=== PATIENT | female | born 1945 | race Caucasian/White ===

== ENCOUNTER 2016-05-03 15:15 | Outpatient (CLI) | payer MEDICARE, OTHER | END 2016-05-03 15:16 | disposition home or self-care (01) | DX: E78.00 Pure hypercholesterolemia, unspecified (principal); J45.901 Unspecified asthma with (acute) exacerbation; E03.9 Hypothyroidism, unspecified ==

== ENCOUNTER 2016-10-19 08:00 | Outpatient (CLI) | payer MEDICARE, OTHER ==
[2016-10-19 20:16] LABS: BASOPHILS % (AUTO) 0.6 %; EOSINOPHILS # (AUTO) 0.2 10^3/uL (0.0-0.7); EOSINOPHILS % (AUTO) 2.9 %; HCT - HEMATOCRIT 40.7 % (37.0-47.0); HGB - HEMOGLOBIN 13.6 g/dL (12.0-16.0); LYMPHOCYTES # (AUTO) 1.7 10^3/uL (1.5-3.5); LYMPHOCYTES % (AUTO) 25.5 %; MEAN CORPUSCULAR HEMOGLOBIN 29.6 pg (27.0-31.0); MEAN CORPUSCULAR HGB CONC 33.4 g/dL (32.0-36.0); MEAN CORPUSCULAR VOLUME 88.5 fL (81.0-99.0); MEAN PLATELET VOLUME 8.8 fL (7.9-10.8); MONOCYTES # (AUTO) 0.6 10^3/uL (0.0-1.0); MONOCYTES % (AUTO) 9.5 %; NEUTROPHILS % (AUTO) 61.5 %; RED BLOOD COUNT 4.59 10^6/uL (4.20-5.40); RED CELL DISTRIBUTION WIDTH 14.2 % (12.0-15.0); UNCORRECTED WHITE BLOOD COUNT 6.5 x10^3/uL; WHITE BLOOD COUNT 6.5 x10^3/uL (4.8-10.8)
[2016-10-19 20:27] LABS: ALBUMIN/GLOBULIN RATIO 1.3 (1.0-2.2); BILIRUBIN,TOTAL 0.6 mg/dL (0.2-1.0); BUN - BLOOD UREA NITROGEN 15 mg/dL (6-20); CALCIUM 9.3 mg/dL (8.5-10.3); CARBON DIOXIDE - CO2 29 mmol/L (21-32); CHLORIDE 100 mmol/L (101-111); CREATININE 0.6 mg/dL (0.4-1.0); GFR - MDRD 99 (>89); GLUCOSE 84 mg/dL (70-100); SODIUM 136 mmol/L (135-145); TOTAL PROTEIN 7.3 g/dL (6.7-8.2)
== END 2016-10-19 08:01 | disposition home or self-care (01) ==
LOC: LAB.WCP 08:00
PROVIDERS: ATTEND Internal Medicine Rheumatology
DX: M05.79 Rheumatoid arthritis with rheumatoid factor of multiple sites without organ or systems involvement (principal)
CPT/HCPCS: 36415; 80053; 82550; 84443; 85025; 85651; 86140

== ENCOUNTER 2017-02-03 11:13 | Outpatient (CLI) | payer MEDICARE, OTHER | END 2017-02-03 11:14 | disposition home or self-care (01) | LOC: LAB.F 11:13 | PROVIDERS: ATTEND Internal Medicine | DX: M81.0 Age-related osteoporosis without current pathological fracture (principal) | CPT/HCPCS: 36415; 83970 ==

== ENCOUNTER 2017-03-16 14:47 | Outpatient (CLI) | payer MEDICARE, OTHER ==
[2017-03-16 18:09] LABS: THYROID STIMULATING HORMONE 1.18 uIU/mL (0.34-5.60)
== END 2017-03-16 14:48 | disposition home or self-care (01) ==
LOC: LAB.F 14:47
PROVIDERS: ATTEND Family Medicine
DX: E03.9 Hypothyroidism, unspecified (principal)
CPT/HCPCS: 36415; 84432; 84439; 84443; 84481; 86800

== ENCOUNTER 2017-06-08 12:36 | Outpatient (CLI) | payer MEDICARE, OTHER ==
[2017-06-08 18:13] LABS: THYROID STIMULATING HORMONE 0.61 uIU/mL (0.34-5.60)
[2017-06-08 18:15] LABS: FREE T4 (FREE THYROXINE) 0.71 ng/dL (0.58-1.64)
[2017-06-12 11:31] LABS: THYROID PEROXIDASE ANTIBODIES 3 IU/mL (<9)
== END 2017-06-08 12:37 | disposition home or self-care (01) ==
LOC: LAB.F 12:36
PROVIDERS: ATTEND Family Medicine
DX: E03.9 Hypothyroidism, unspecified (principal)
CPT/HCPCS: 36415; 84439; 84443; 84481; 86376; 86800

== ENCOUNTER 2017-08-16 15:05 | Outpatient (CLI) | payer MEDICARE, OTHER ==
[2017-08-16 17:42] LABS: BASOPHILS # (AUTO) 0.1 10^3/uL (0.0-0.1); EOSINOPHILS # (AUTO) 0.2 10^3/uL (0.0-0.7); EOSINOPHILS % (AUTO) 2.6 %; HGB - HEMOGLOBIN 13.1 g/dL (12.0-16.0); LYMPHOCYTES # (AUTO) 2.3 10^3/uL (1.5-3.5); LYMPHOCYTES % (AUTO) 24.3 %; MEAN CORPUSCULAR HEMOGLOBIN 29.3 pg (27.0-31.0); MEAN CORPUSCULAR HGB CONC 33.3 g/dL (32.0-36.0); MEAN CORPUSCULAR VOLUME 87.9 fL (81.0-99.0); MEAN PLATELET VOLUME 8.3 fL (7.9-10.8); MONOCYTES # (AUTO) 0.8 10^3/uL (0.0-1.0); MONOCYTES % (AUTO) 8.5 %; NEUTROPHILS % (AUTO) 63.6 %; PLT - PLATELET COUNT 222 10^3/uL (130-450); RED BLOOD COUNT 4.49 10^6/uL (4.20-5.40); RED CELL DISTRIBUTION WIDTH 13.7 % (12.0-15.0); WHITE BLOOD COUNT 9.3 x10^3/uL (4.8-10.8)
[2017-08-16 18:08] LABS: ALBUMIN 4.1 g/dL (3.2-5.5); ALBUMIN/GLOBULIN RATIO 1.4 (1.0-2.2); BILIRUBIN,TOTAL 0.7 mg/dL (0.2-1.0); CALCIUM 8.9 mg/dL (8.5-10.3); TOTAL PROTEIN 7.1 g/dL (6.7-8.2)
== END 2017-08-16 15:06 | disposition home or self-care (01) ==
LOC: LAB.F 15:05
PROVIDERS: ATTEND Family Medicine
DX: M05.79 Rheumatoid arthritis with rheumatoid factor of multiple sites without organ or systems involvement (principal)
CPT/HCPCS: 36415; 80053; 85025; 85651

== ENCOUNTER 2017-11-08 10:45 | Outpatient (CLI) | payer MEDICARE, OTHER ==
--- NOTE | 2017-11-08 14:05 | DEXA Report ---
Procedure Date: 11/08/2017 Accession Number: [id number] / [id number] Procedure: DEX - Dexa Spine and/or Hip CPT Code: FULL RESULT: EXAM: Dexa Spine and/or Hip DATE: 11/08/2017 11:20 AM CLINICAL HISTORY: POSTMENOPAUSAL TECHNIQUE: Dual energy x-ray absorptiometry (DXA) was performed on a [employer] System. Regions measured are the AP Spine, femoral neck, and if needed forearm. COMPARISON: 10/19/2015. In accordance with the International Society for Clinical Densitometry (ISCD) guidelines, data from previous exams may be reanalyzed using current recommendations and techniques. This is done to allow a more accurate basis for comparison with the current study. FINDINGS: The data for the lumbar spine is as follows: BMD (g/cm/cm) T-SCORE Z-SCORE REGION L1 0.669 -3.8 -1.9 L2 0.726 -4.0 -2.0 L3 0.824 -3.1 -1.2 L4 0.950 -2.1 -0.2 TOTAL 0.803 -3.1 -1.2 NOTE: All evaluable vertebrae are used for classification The data for the hip is as follows: BMD (g/cm/cm) T-SCORE Z-SCORE REGION Neck 0.818 -1.6 0.3 TOTAL 0.780 -1.8 -0.1 NOTE: The femoral neck or total proximal femur, whichever is lowest, is used for classification. DXA RESULTS SUMMARY: Spine SCAN DATE AGE BMD CHANGE VS CHANGE VS PREVIOUS PREVIOUS % 11/08/2017 [age] 0.803 0.018 2.3 10/19/2015 [age] 0.785 * Denotes significant change at the 95% confidence level. Denotes dissimilar scan types or analysis methods. DXA RESULTS SUMMARY: Hip SCAN DATE AGE BMD CHANGE VS CHANGE VS PREVIOUS PREVIOUS % 11/08/2017 72.3 0.780 -0.010 -1.3 10/19/2015 [age] 0.790 * Denotes significant change at the 95% confidence level. Denotes dissimilar scan types or analysis methods. IMPRESSION: THE WHO CLASSIFICATION BASED ON THE INTERNATIONAL REFERENCE STANDARD IS OSTEOPOROSIS. THE FRACTURE RISK IS HIGH. RECOMMENDATION: Patients with diagnosis of osteoporosis or osteopenia should have regular bone mineral density assessment. For those eligible for Medicare, routine testing is allowed once every 2 years. Testing frequency can be increased for patients who have rapidly progressing disease or for those who are receiving medical therapy to restore bone mass. COMMENT: World Health Organization (WHO) definitions for osteoporosis and osteopenia: NORMAL BMD: T-score at -1.0 or higher, fracture risk is low OSTEOPENIA BMD: T-score between -1.0 and -2.5, fracture risk is increased. OSTEOPOROSIS BMD: T-score at -2.5 or lower, fracture risk is high. National Osteoporosis Foundation recommends: 1. Obtain adequate dietary calcium (at least 1200 mg per day) and vitamin D (400-800 international units per day). 2. Participate, as appropriate, in regular weightbearing and muscle-strengthening exercise. 3. Avoid tobacco use and reduce alcohol and caffeine intake. 4. For more detailed information see the website at www.NOF.org.
== END 2017-11-08 10:46 | disposition home or self-care (01) ==
LOC: DI 10:45
PROVIDERS: ATTEND Physician Assistant Medical
DX: M81.0 Age-related osteoporosis without current pathological fracture (principal)
CPT/HCPCS: 77080

== ENCOUNTER 2017-11-23 09:14 | Outpatient (CLI) | payer MEDICARE, OTHER ==
[2017-11-23 17:34] LABS: CHOL/HDL RATIO 2.6 (<4.4); CHOLESTEROL 180 mg/dL; HDL CHOLESTEROL 68 mg/dL; LDL CHOLESTEROL,CALCULATED 99 mg/dL; LDL/HDL RATIO 1.5 (<4.4); VLDL CHOLESTEROL 13 mg/dL
[2017-11-23 17:44] LABS: THYROID STIMULATING HORMONE 3.71 uIU/mL (0.34-5.60)
[2017-11-23 17:46] LABS: FREE T4 (FREE THYROXINE) 0.66 ng/dL (0.58-1.64)
== END 2017-11-23 09:15 | disposition home or self-care (01) ==
LOC: LAB.F 09:14
PROVIDERS: ATTEND Family Medicine
DX: I10 Essential (primary) hypertension (principal); E78.00 Pure hypercholesterolemia, unspecified; M81.0 Age-related osteoporosis without current pathological fracture; E03.9 Hypothyroidism, unspecified
CPT/HCPCS: 36415; 80061; 82306; 83721; 84439; 84443; 84481

== ENCOUNTER 2018-01-10 13:42 | Outpatient (CLI) | payer MEDICARE, OTHER ==
[2018-01-10 18:52] LABS: BASOPHILS # (AUTO) 0.1 10^3/uL (0.0-0.1); BASOPHILS % (AUTO) 1.1 %; EOSINOPHILS # (AUTO) 0.2 10^3/uL (0.0-0.7); HGB - HEMOGLOBIN 13.8 g/dL (12.0-16.0); LYMPHOCYTES # (AUTO) 1.8 10^3/uL (1.5-3.5); LYMPHOCYTES % (AUTO) 22.3 %; MEAN CORPUSCULAR HEMOGLOBIN 29.9 pg (27.0-31.0); MEAN CORPUSCULAR HGB CONC 33.8 g/dL (32.0-36.0); MEAN CORPUSCULAR VOLUME 88.6 fL (81.0-99.0); MEAN PLATELET VOLUME 8.8 fL (7.9-10.8); MONOCYTES # (AUTO) 0.8 10^3/uL (0.0-1.0); MONOCYTES % (AUTO) 9.7 %; NEUTROPHILS # (AUTO) 5.2 10^3/uL (1.5-6.6); NEUTROPHILS % (AUTO) 64.9 %; PLT - PLATELET COUNT 224 10^3/uL (130-450); RED CELL DISTRIBUTION WIDTH 13.7 % (12.0-15.0)
[2018-01-10 19:11] LABS: ALBUMIN 4.4 g/dL (3.2-5.5); ALBUMIN/GLOBULIN RATIO 1.5 (1.0-2.2); BILIRUBIN,TOTAL 0.7 mg/dL (0.2-1.0); CALCIUM 9.6 mg/dL (8.5-10.3); CREATININE 0.4 mg/dL (0.4-1.0); TOTAL PROTEIN 7.3 g/dL (6.7-8.2)
== END 2018-01-10 13:43 | disposition home or self-care (01) ==
LOC: LAB.WCP 13:42
PROVIDERS: ATTEND Internal Medicine Rheumatology
DX: M05.79 Rheumatoid arthritis with rheumatoid factor of multiple sites without organ or systems involvement (principal)
CPT/HCPCS: 36415; 80053; 85025; 85651

== ENCOUNTER 2018-06-20 10:34 | Outpatient (CLI) | payer MEDICARE, OTHER | END 2018-06-20 10:35 | disposition home or self-care (01) | LOC: LAB.F 10:34 | PROVIDERS: ATTEND Internal Medicine | DX: E03.9 Hypothyroidism, unspecified (principal) | CPT/HCPCS: 36415; 80048; 84443 ==

== ENCOUNTER 2018-06-28 11:04 | Outpatient (CLI) | payer MEDICARE, OTHER ==
[2018-06-28 17:50] LABS: CALCIUM 9.3 mg/dL (8.5-10.3); CREATININE 0.6 mg/dL (0.4-1.0)
[2018-06-28 18:08] LABS: THYROID STIMULATING HORMONE 3.02 uIU/mL (0.34-5.60)
[2018-06-28 18:10] LABS: FREE T4 (FREE THYROXINE) 0.66 ng/dL (0.58-1.64)
== END 2018-06-28 11:05 | disposition home or self-care (01) ==
LOC: LAB.F 11:04
PROVIDERS: ATTEND Internal Medicine
DX: E03.9 Hypothyroidism, unspecified (principal)
CPT/HCPCS: 36415; 80048; 84439; 84443; 84481

== ENCOUNTER 2019-01-18 15:10 | Outpatient (CLI) | payer MEDICARE, OTHER ==
[2019-01-18 18:25] LABS: T4 (THYROXINE) 4.52 ug/dL (6.09-12.23)
[2019-01-18 18:31] LABS: THYROID STIMULATING HORMONE 2.37 uIU/mL (0.34-5.60)
[2019-01-18 18:32] LABS: FREE T4 (FREE THYROXINE) 0.71 ng/dL (0.58-1.64)
== END 2019-01-18 15:11 | disposition home or self-care (01) ==
LOC: LAB.S 15:10
PROVIDERS: ATTEND Internal Medicine
DX: E03.9 Hypothyroidism, unspecified (principal)
CPT/HCPCS: 36415; 84436; 84439; 84443; 84481

== ENCOUNTER 2019-01-23 13:40 | Outpatient (CLI) | payer MEDICARE, OTHER ==
[2019-01-23 19:08] LABS: BASOPHILS # (AUTO) 0.1 10^3/uL (0.0-0.1); BASOPHILS % (AUTO) 0.8 %; EOSINOPHILS # (AUTO) 0.3 10^3/uL (0.0-0.7); EOSINOPHILS % (AUTO) 3.3 %; HGB - HEMOGLOBIN 13.2 g/dL (12.0-16.0); LYMPHOCYTES # (AUTO) 1.8 10^3/uL (1.5-3.5); LYMPHOCYTES % (AUTO) 22.3 %; MEAN CORPUSCULAR HGB CONC 31.4 g/dL (32.0-36.0); MEAN CORPUSCULAR VOLUME 89.4 fL (81.0-99.0); MEAN PLATELET VOLUME 10.8 fL (7.9-10.8); MONOCYTES # (AUTO) 0.8 10^3/uL (0.0-1.0); MONOCYTES % (AUTO) 10.1 %; NEUTROPHILS % (AUTO) 63.2 %; PLT - PLATELET COUNT 259 10^3/uL (130-450); RED BLOOD COUNT 4.71 10^6/uL (4.20-5.40); RED CELL DISTRIBUTION WIDTH 14.4 % (12.0-15.0); WHITE BLOOD COUNT 7.9 x10^3/uL (4.8-10.8)
[2019-01-23 19:38] LABS: ALBUMIN 4.4 g/dL (3.2-5.5); ALBUMIN/GLOBULIN RATIO 1.4 (1.0-2.2); BILIRUBIN,TOTAL 0.6 mg/dL (0.2-1.0); CALCIUM 9.6 mg/dL (8.5-10.3); CREATININE 0.6 mg/dL (0.4-1.0); TOTAL PROTEIN 7.5 g/dL (6.7-8.2)
== END 2019-01-23 23:59 | disposition home or self-care (01) ==
LOC: LAB.WCP 13:40
PROVIDERS: ATTEND Internal Medicine Rheumatology
DX: M05.79 Rheumatoid arthritis with rheumatoid factor of multiple sites without organ or systems involvement (principal)
CPT/HCPCS: 36415; 80053; 85025; 85651

== ENCOUNTER 2019-10-08 11:09 | Outpatient (CLI) | payer MEDICARE, OTHER ==
[2019-10-08 15:20] LABS: BASOPHILS # (AUTO) 0.1 10^3/uL (0.0-0.1); BASOPHILS % (AUTO) 0.9 %; EOSINOPHILS # (AUTO) 0.2 10^3/uL (0.0-0.7); EOSINOPHILS % (AUTO) 3.5 %; HGB - HEMOGLOBIN 13.6 g/dL (12.0-16.0); LYMPHOCYTES # (AUTO) 1.8 10^3/uL (1.5-3.5); LYMPHOCYTES % (AUTO) 27.5 %; MEAN CORPUSCULAR HEMOGLOBIN 28.4 pg (27.0-31.0); MEAN CORPUSCULAR HGB CONC 31.9 g/dL (32.0-36.0); MEAN CORPUSCULAR VOLUME 88.9 fL (81.0-99.0); MEAN PLATELET VOLUME 10.5 fL (7.9-10.8); MONOCYTES # (AUTO) 0.7 10^3/uL (0.0-1.0); MONOCYTES % (AUTO) 10.5 %; NEUTROPHILS # (AUTO) 3.7 10^3/uL (1.5-6.6); NEUTROPHILS % (AUTO) 57.1 %; PLT - PLATELET COUNT 259 10^3/uL (130-450); RED BLOOD COUNT 4.79 10^6/uL (4.20-5.40); RED CELL DISTRIBUTION WIDTH 13.6 % (12.0-15.0); WHITE BLOOD COUNT 6.6 x10^3/uL (4.8-10.8)
[2019-10-08 15:51] LABS: ALBUMIN 4.5 g/dL (3.2-5.5); ALBUMIN/GLOBULIN RATIO 1.5 (1.0-2.2); ALKALINE PHOSPHATASE 65 IU/L (42-121); ALT ALANINE AMINOTRANSFERASE 20 IU/L (10-60); AST ASPARTATE AMINOTRANSFERASE 24 IU/L (10-42); BILIRUBIN,TOTAL 0.8 mg/dL (0.2-1.0); BUN - BLOOD UREA NITROGEN 14 mg/dL (6-20); CARBON DIOXIDE - CO2 28 mmol/L (21-32); CHLORIDE 102 mmol/L (101-111); CHOL/HDL RATIO 3.2 (<4.4); CHOLESTEROL 199 mg/dL; CREATININE 0.6 mg/dL (0.4-1.0); GLUCOSE 97 mg/dL (70-100); HDL CHOLESTEROL 63 mg/dL; LDL CHOLESTEROL,CALCULATED 113 mg/dL; LDL/HDL RATIO 1.8 (<4.4); SODIUM 137 mmol/L (135-145); TOTAL PROTEIN 7.5 g/dL (6.7-8.2); VLDL CHOLESTEROL 23 mg/dL
== END 2019-10-08 11:10 | disposition home or self-care (01) ==
LOC: LAB.S 11:09
PROVIDERS: ATTEND Family Medicine
DX: Z00.00 Encounter for general adult medical examination without abnormal findings (principal); M06.9 Rheumatoid arthritis, unspecified; E03.9 Hypothyroidism, unspecified; M81.0 Age-related osteoporosis without current pathological fracture
CPT/HCPCS: 36415; 80053; 80061; 82306; 83721; 84443; 85025

== ENCOUNTER 2020-04-09 09:58 | Outpatient (CLI) | payer MEDICARE, OTHER ==
[2020-04-09 15:29] LABS: BASOPHILS # (AUTO) 0.1 10^3/uL (0.0-0.1); BASOPHILS % (AUTO) 1.2 %; EOSINOPHILS # (AUTO) 0.3 10^3/uL (0.0-0.7); HGB - HEMOGLOBIN 13.3 g/dL (12.0-16.0); LYMPHOCYTES # (AUTO) 1.7 10^3/uL (1.5-3.5); LYMPHOCYTES % (AUTO) 30.1 %; MEAN CORPUSCULAR HEMOGLOBIN 27.9 pg (27.0-31.0); MEAN CORPUSCULAR HGB CONC 31.4 g/dL (32.0-36.0); MEAN CORPUSCULAR VOLUME 88.9 fL (81.0-99.0); MEAN PLATELET VOLUME 10.7 fL (7.9-10.8); MONOCYTES # (AUTO) 0.6 10^3/uL (0.0-1.0); MONOCYTES % (AUTO) 10.9 %; NEUTROPHILS % (AUTO) 52.5 %; PLT - PLATELET COUNT 231 10^3/uL (130-450); RED BLOOD COUNT 4.77 10^6/uL (4.20-5.40); RED CELL DISTRIBUTION WIDTH 13.8 % (12.0-15.0); WHITE BLOOD COUNT 5.8 x10^3/uL (4.8-10.8)
[2020-04-09 15:35] LABS: ALBUMIN 4.3 g/dL (3.2-5.5); ALBUMIN/GLOBULIN RATIO 1.3 (1.0-2.2); BILIRUBIN,TOTAL 0.8 mg/dL (0.2-1.0); CALCIUM 9.3 mg/dL (8.5-10.3); CREATININE 0.6 mg/dL (0.4-1.0); TOTAL PROTEIN 7.6 g/dL (6.7-8.2)
== END 2020-04-09 09:59 | disposition home or self-care (01) ==
LOC: LAB.S 09:58
PROVIDERS: ATTEND Internal Medicine
DX: E03.9 Hypothyroidism, unspecified (principal); I10 Essential (primary) hypertension
CPT/HCPCS: 80053; 81599; 84439; 84443; 85025

== ENCOUNTER 2020-12-09 13:33 | Outpatient (CLI) | payer MEDICARE, OTHER ==
[2020-12-09 17:56] LABS: BASOPHILS # (AUTO) 0.1 10^3/uL (0.0-0.1); BASOPHILS % (AUTO) 0.7 %; EOSINOPHILS # (AUTO) 0.2 10^3/uL (0.0-0.7); EOSINOPHILS % (AUTO) 1.5 %; HCT - HEMATOCRIT 40.1 % (37.0-47.0); HGB - HEMOGLOBIN 12.9 g/dL (12.0-16.0); LYMPHOCYTES # (AUTO) 1.7 10^3/uL (1.5-3.5); LYMPHOCYTES % (AUTO) 16.8 %; MEAN CORPUSCULAR HEMOGLOBIN 27.7 pg (27.0-31.0); MEAN CORPUSCULAR HGB CONC 32.2 g/dL (32.0-36.0); MEAN CORPUSCULAR VOLUME 86.1 fL (81.0-99.0); MEAN PLATELET VOLUME 10.3 fL (7.9-10.8); MONOCYTES # (AUTO) 0.8 10^3/uL (0.0-1.0); MONOCYTES % (AUTO) 7.6 %; NEUTROPHILS # (AUTO) 7.6 10^3/uL (1.5-6.6); NEUTROPHILS % (AUTO) 73.1 %; PLT - PLATELET COUNT 299 10^3/uL (130-450); RED BLOOD COUNT 4.66 10^6/uL (4.20-5.40); RED CELL DISTRIBUTION WIDTH 14.4 % (12.0-15.0); WHITE BLOOD COUNT 10.3 x10^3/uL (4.8-10.8)
[2020-12-09 18:13] LABS: ALBUMIN 4.2 g/dL (3.2-5.5); ALBUMIN/GLOBULIN RATIO 1.2 (1.0-2.2); BILIRUBIN,TOTAL 0.9 mg/dL (0.2-1.0); CALCIUM 9.2 mg/dL (8.5-10.3); CREATININE 0.5 mg/dL (0.4-1.0); POTASSIUM 3.8 mmol/L (3.5-5.0); TOTAL PROTEIN 7.7 g/dL (6.7-8.2)
== END 2020-12-09 23:59 | disposition home or self-care (01) ==
LOC: LAB.WCP 13:33
PROVIDERS: ATTEND Internal Medicine Rheumatology
DX: M05.79 Rheumatoid arthritis with rheumatoid factor of multiple sites without organ or systems involvement (principal)
CPT/HCPCS: 36415; 80053; 85025; 85651

== ENCOUNTER 2021-01-21 14:49 | Outpatient (CLI) | payer MEDICARE, OTHER ==
[2021-01-21 19:53] LABS: BASOPHILS # (AUTO) 0.1 10^3/uL (0.0-0.1); BASOPHILS % (AUTO) 0.7 %; EOSINOPHILS # (AUTO) 0.1 10^3/uL (0.0-0.7); EOSINOPHILS % (AUTO) 1.2 %; HCT - HEMATOCRIT 39.4 % (37.0-47.0); HGB - HEMOGLOBIN 12.5 g/dL (12.0-16.0); LYMPHOCYTES % (AUTO) 17.7 %; MEAN CORPUSCULAR HEMOGLOBIN 27.4 pg (27.0-31.0); MEAN CORPUSCULAR HGB CONC 31.7 g/dL (32.0-36.0); MEAN CORPUSCULAR VOLUME 86.4 fL (81.0-99.0); MEAN PLATELET VOLUME 10.1 fL (7.9-10.8); MONOCYTES # (AUTO) 0.8 10^3/uL (0.0-1.0); NEUTROPHILS # (AUTO) 8.1 10^3/uL (1.5-6.6); NEUTROPHILS % (AUTO) 72.9 %; PLT - PLATELET COUNT 276 10^3/uL (130-450); RED BLOOD COUNT 4.56 10^6/uL (4.20-5.40); RED CELL DISTRIBUTION WIDTH 14.3 % (12.0-15.0); WHITE BLOOD COUNT 11.1 x10^3/uL (4.8-10.8)
[2021-01-21 20:14] LABS: THYROID STIMULATING HORMONE 7.98 uIU/mL (0.34-5.60)
[2021-01-21 21:00] LABS: FREE T4 (FREE THYROXINE) 0.66 ng/dL (0.58-1.64)
== END 2021-01-21 14:50 | disposition home or self-care (01) ==
LOC: LAB.S 14:49
PROVIDERS: ATTEND Internal Medicine
DX: E03.9 Hypothyroidism, unspecified (principal); I10 Essential (primary) hypertension
CPT/HCPCS: 36415; 84439; 84443; 85025

== ENCOUNTER 2021-05-20 11:22 | Outpatient (CLI) | payer MEDICARE, OTHER ==
[2021-05-20 15:37] LABS: THYROID STIMULATING HORMONE 2.5 uIU/mL (0.34-5.60)
== END 2021-05-20 11:23 | disposition home or self-care (01) ==
LOC: LAB.S 11:22
PROVIDERS: ATTEND Internal Medicine
DX: E03.9 Hypothyroidism, unspecified (principal)
CPT/HCPCS: 36415; 84443

== ENCOUNTER 2022-04-07 11:48 | Emergency (ER) | payer MEDICARE, OTHER ==
[2022-04-07 12:05] VITALS: BP 156/85
--- OUTSIDE RECORDS SUMMARY | 2022-04-07 12:05 | EXTERNAL MEDICAL SUMMARY RPT | Continuity of Care Document ---
:1945 Author Organization [facility] Address [address] [place] [address] Phone Care Team Providers Name Role Phone Unavailable Unavailable Unavailable Ninoska Marquez Unavailable Unavailable Allergies No information. Encounters No information. Functional Status No information. Immunizations No information. Medications date description facility 2022-01-17 00:00 albuterol sulfate [facility] 2022-01-17 00:00 albuterol sulfate [facility] [place] 2022-02-26 00:00 prednisone [facility] 2022-02-23 00:00 nystatin-triamcinolone [facility] 2022-02-23 00:00 nystatin-triamcinolone [facility] 2022-01-17 00:00 thyroid (pork) All 2022-01-17 00:00 thyroid (pork) [facility] 2022-03-01 00:00 thyroid (pork) [facility] 2022-01-26 00:00 THYROID All 2022-02-23 00:00 THYROID [facility] 2022-02-24 00:00 THYROID [facility] 2022-02-26 00:00 THYROID [facility] 2022-02-28 00:00 THYROID [facility] 2022-03-01 00:00 THYROID [facility] 2022-01-17 00:00 thyroid (pork) All 2022-01-17 00:00 thyroid (pork) [facility] 2022-03-01 00:00 thyroid (pork) [facility] 2022-02-26 00:00 prednisone [facility] 2022-02-26 00:00 prednisone [facility] 2022-01-17 00:00 thyroid (pork) All 2022-01-17 00:00 thyroid (pork) [facility] 2022-03-01 00:00 thyroid (pork) [facility] 2022-01-26 00:00 THYROID All 2022-02-23 00:00 THYROID [facility] 2022-02-24 00:00 THYROID [facility] [place] 2022-02-26 00:00 THYROID [facility] [place] 2022-02-28 00:00 THYROID [facility] [place] 2022-03-01 00:00 THYROID [facility] [place] 2022-02-26 00:00 PREDNISONE [facility] [place] 2022-02-26 00:00 prednisone [facility] [place] 2022-01-17 00:00 thyroid (pork) All 2022-01-17 00:00 thyroid (pork) [facility] 2022-03-01 00:00 thyroid (pork) [facility] 2022-01-17 00:00 albuterol sulfate All 2022-01-17 00:00 albuterol sulfate [facility] 2022-02-23 00:00 nystatin-triamcinolone [facility] 2022-01-26 00:00 THYROID All 2022-02-23 00:00 THYROID [facility] 2022-02-24 00:00 THYROID [facility] [place] 2022-02-26 00:00 THYROID [facility] [place] 2022-02-28 00:00 THYROID [facility] [place] 2022-03-01 00:00 THYROID [facility] [place] 2022-01-17 00:00 albuterol sulfate All 2022-01-17 00:00 albuterol sulfate [facility] [place] 2022-01-17 00:00 albuterol sulfate All 2022-01-17 00:00 albuterol sulfate [facility] [place] 2022-02-23 00:00 nystatin-triamcinolone [facility] [place] Problems date description facility 2022-01-17 00:00 Long-term drug therapy All 2022-01-17 00:00 Long-term drug therapy [facility] 2022-01-17 00:00 Hyperlipidemia screening All 2022-01-17 00:00 Hyperlipidemia screening [facility] 2022-01-17 00:00 Long-term (current) drug use All 2022-01-17 00:00 Long-term (current) drug use [facility]In [facility] 2022-01-17 00:00 Screening for lipoid disorders All 2022-01-17 00:00 Screening for lipoid disorders [facility] 2022-01-17 00:00 Encounter for screening for lipoid All disorders 2022-01-17 00:00 Encounter for screening for lipoid [facility] 2022-01-17 00:00 Other intermediate (current) drug All therapy 2022-01-17 00:00 Other intermediate (current) drug [facility] [place] 2022-02-26 00:00 Erythema [facility] [place] 2022-02-26 00:00 Rash and other nonspecific skin [facility] [place] 2022-02-26 00:00 Erythematous condition, unspecified [facility] [place] Procedures date description facility 2022-01-17 00:00 Visit Code Hold All 2022-01-17 00:00 Visit Code Hold [facility] [place] 2022-02-23 00:00 Visit Code Hold [facility] [place] 2022-02-26 00:00 Visit Code Hold [facility] [place] 2022-01-17 00:00 Fluzone High-Dose Intramuscular All Suspension 2022-01-17 00:00 Fluzone High-Dose Intramuscular [facility] Susp[facility] [place] 2022-01-17 00:00 Administration of Influenza Virus All Vaccine 2022-01-17 00:00 Administration of Influenza Virus [facility] [place] Results/Labs No information. Social History date description facility 2022-01-17 00:00 Never smoker All 2022-01-17 00:00 Never smoker [facility] [place] 2022-02-23 00:00 Never smoker [facility] [place] Vital Signs date measurement value units 2022-01-17 00:00 BMI 21.28 kg/m2 2022-01-17 00:00 BP_diastolic 80 mmHg 2022-01-17 00:00 BP_systolic 164 mmHg 2022-01-17 00:00 heart_rate 74 /min 2022-01-17 00:00 height_metric 156.84 cm 2022-01-17 00:00 height_standard 61.75 in 2022-01-17 00:00 respiration_rate 16 /min 2022-01-17 00:00 temperature_metric 36.39 C 2022-01-17 00:00 temperature_standard 97.5 F 2022-01-17 00:00 weight_metric 52.16 kg 2022-01-17 00:00 weight_standard 115 lb 2022-02-23 00:00 BMI 20.91 kg/m2 2022-02-23 00:00 BP_diastolic 82 mmHg 2022-02-23 00:00 BP_systolic 160 mmHg 2022-02-23 00:00 heart_rate 84 /min 2022-02-23 00:00 height_metric 156.84 cm 2022-02-23 00:00 height_standard 61.75 in 2022-02-23 00:00 respiration_rate 16 /min 2022-02-23 00:00 temperature_metric 36.44 C 2022-02-23 00:00 temperature_standard 97.6 F 2022-02-23 00:00 weight_metric 51.26 kg 2022-02-23 00:00 weight_standard 113 lb 2022-02-26 00:00 BMI 21.84 kg/m2 2022-02-26 00:00 BP_diastolic 70 mmHg 2022-02-26 00:00 BP_systolic 154 mmHg 2022-02-26 00:00 heart_rate 91 /min 2022-02-26 00:00 height_metric 156.84 cm 2022-02-26 00:00 height_standard 61.75 in 2022-02-26 00:00 respiration_rate 12 /min 2022-02-26 00:00 temperature_metric 36.17 C 2022-02-26 00:00 temperature_standard 97.1 F 2022-02-26 00:00 weight_metric 53.52 kg 2022-02-26 00:00 weight_standard 118 lb
--- NOTE | 2022-04-07 13:08 | ED Physician Documentation ---
PD HPI WOUND RECHECK - Stated complaint Stated Complaint: LT FOOT SWOLLEN - Chief complaint Chief Complaint: Wound - Histroy obtained from History obtained from: Patient - Additional information Additional information: 76-year-old with rheumatoid arthritis on Remicade, hypothyroidism, otherwise healthy has had about a 3-week history of a scaly painful weeping rash to both legs, left worse than right. No fevers. She is never had this before. 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 HEENT: Other - Present Medications Home Medications: Ambulatory Orders Medication Instructions Recorded Confirmed Naproxen Sodium [Aleve] 220 mg PO Q8HR PRN 02/14/14 02/10/22 Ascorbic Acid [Vitamin C] 500 mg PO DAILY 01/27/17 02/10/22 Calcium Citrate 200 mg PO DAILY 01/27/17 02/10/22 Cholecalciferol (Vitamin D3) 2,000 unit PO DAILY 01/27/17 02/10/22 [Vitamin D] Cyanocobalamin (Vitamin B-12) 100 mcg PO DAILY 01/27/17 02/10/22 [Vitamin B-12 (100mcg tab)] Folic Acid 1 mg PO DAILY 01/27/17 02/10/22 Pyridoxine HCl (Vitamin B6) 100 mg PO DAILY 01/27/17 02/10/22 [Vitamin B-6] Thyroid,Pork [Dwight Thyroid] 90 mg PO DAILY 12/28/17 02/10/22 Albuterol Sulf [Ventolin Hfa 2 puffs INH Q4HR PRN 02/10/22 02/10/22 Inhaler] cephALEXin [Keflex] 500 mg PO Q6H #28 cap 04/07/22 - Allergies Allergies/Adverse Reactions: Allergies Allergy/AdvReac Type Severity Reaction Status Date / Time No Known Drug Allergies Allergy Verified 04/07/22 12:05 - Social History Smoking Status: Never smoker PD ED PE NORMAL - Vitals Vital signs reviewed: Yes - General General: Alert and oriented X 3, No acute distress - Abdomen Abdomen: Normal bowel sounds, Soft - Back Back: No CVA TTP - Extremities Extremities: Other (Weeping cellulitis of both shins, left worse than right and a culture was taken from the left. There is no abscess.) - Neuro Neuro: Alert and oriented X 3, Normal speech Results - Vitals Vitals: Vital Signs - 24 hr 04/07/22 12:00 Temperature 36.5 C Heart Rate 79 Respiratory 16 Rate Blood Pressure 156/85 H O2 Saturation 99 Oxygen O2 Source Room air PD Medical Decision Making - ED course ED course: It looks like cellulitis but could be an autoimmune phenomenon. Close follow-up with dermatology was advised but a culture is pending and we did wound care in the interim consisting of debridement and Wrapping. Departure - Departure Disposition: 01 Home, Self Care Clinical Impression: Cellulitis Qualifiers: Site of cellulitis: extremity Site of cellulitis of extremity: lower extremity Laterality: unspecified laterality Qualified Code(s): L03.119 - Cellulitis of unspecified part of limb Condition: Good Record reviewed to determine appropriate education?: Yes Instructions: ED Infec Skin Cellulitis Prescriptions: cephALEXin [Keflex] 500 mg PO Q6H #28 cap Comments: I sent your prescription electronically to [facility] in [place]. I strongly recommend following up with a nurse credit risk specialist. The closest is here in [place], the phone number is [phone], call for the next available appointment. We are performing a wound culture, the results should be done in 48-72 hours. If antibiotic change is necessary we will call you. Return if worse in the meantime, especially if you develop increased pain, fevers, cannot keep down the medication. Otherwise follow-up with your physician in approximately 2-3 days.
== END 2022-04-07 13:32 | disposition home or self-care (01) ==
LOC: ED 11:48
DX: L03.116 Cellulitis of left lower limb (principal); L03.115 Cellulitis of right lower limb
CPT/HCPCS: 87070; 87077; 87181; 87205; 99283; 99284

== ENCOUNTER 2023-02-14 10:30 | Outpatient (CLI) | payer MEDICARE, OTHER ==
[2023-02-14 15:05] LABS: BASOPHILS # (AUTO) 0.1 10^3/uL (0.0-0.1); BASOPHILS % (AUTO) 0.8 %; EOSINOPHILS # (AUTO) 0.2 10^3/uL (0.0-0.7); EOSINOPHILS % (AUTO) 1.5 %; HCT - HEMATOCRIT 38.6 % (37.0-47.0); HGB - HEMOGLOBIN 11.9 g/dL (12.0-16.0); LYMPHOCYTES # (AUTO) 1.2 10^3/uL (1.5-3.5); LYMPHOCYTES % (AUTO) 9.5 %; MEAN CORPUSCULAR HEMOGLOBIN 26.2 pg (27.0-31.0); MEAN CORPUSCULAR HGB CONC 30.8 g/dL (32.0-36.0); MEAN CORPUSCULAR VOLUME 84.8 fL (81.0-99.0); MEAN PLATELET VOLUME 10.5 fL (7.9-10.8); MONOCYTES # (AUTO) 1.1 10^3/uL (0.0-1.0); MONOCYTES % (AUTO) 8.2 %; NEUTROPHILS # (AUTO) 10.3 10^3/uL (1.5-6.6); NEUTROPHILS % (AUTO) 79.6 %; PLT - PLATELET COUNT 356 10^3/uL (130-450); RED BLOOD COUNT 4.55 10^6/uL (4.20-5.40); RED CELL DISTRIBUTION WIDTH 15.1 % (12.0-15.0); WHITE BLOOD COUNT 12.9 x10^3/uL (4.8-10.8)
[2023-02-14 15:29] LABS: THYROID STIMULATING HORMONE 9.38 uIU/mL (0.34-5.60)
[2023-02-14 15:59] LABS: ALBUMIN 4.1 g/dL (3.2-5.5); ALBUMIN/GLOBULIN RATIO 1.2 (1.0-2.2); ALKALINE PHOSPHATASE 88 IU/L (42-121); ALT ALANINE AMINOTRANSFERASE 8 IU/L (10-60); AST ASPARTATE AMINOTRANSFERASE 14 IU/L (10-42); BILIRUBIN,TOTAL 0.5 mg/dL (0.2-1.0); BUN - BLOOD UREA NITROGEN 13 mg/dL (6-20); CALCIUM 9.4 mg/dL (8.5-10.3); CARBON DIOXIDE - CO2 28 mmol/L (21-32); CHLORIDE 98 mmol/L (101-111); CHOL/HDL RATIO 2.5 (<4.4); CHOLESTEROL 163 mg/dL; CREATININE 0.5 mg/dL (0.6-1.3); GFR - MDRD 120 (>89); GLUCOSE 95 mg/dL (74-104); HDL CHOLESTEROL 66 mg/dL; LDL CHOLESTEROL,CALCULATED 83 mg/dL; LDL/HDL RATIO 1.3 (<4.4); SODIUM 133 mmol/L (135-145); TOTAL PROTEIN 7.5 g/dL (6.4-8.9); TRIGLYCERIDES 70 mg/dL (48-352); VLDL CHOLESTEROL 14 mg/dL
== END 2023-02-14 10:31 | disposition home or self-care (01) ==
LOC: LAB.S 10:30
PROVIDERS: ATTEND Registered Nurse
DX: E03.9 Hypothyroidism, unspecified (principal); Z79.899 Other long term (current) drug therapy; Z13.220 Encounter for screening for lipoid disorders; Z91.02 Food additives allergy status; L40.9 Psoriasis, unspecified
CPT/HCPCS: 36415; 80053; 80061; 83721; 84439; 84443; 85025; 85651